=== PATIENT | male | born 1985 | race Caucasian/White ===

== ENCOUNTER 2025-02-10 18:42 | Emergency (ER) | payer SELFPAY ==
--- NOTE | 2025-02-10 18:56 | ED.EAR ---
HPI - Ear Problem General Chief complaint: Ear Stated complaint: EARACHE Time Seen by Provider: 02/10/25 18:57 Source: patient Mode of arrival: ambulatory Limitations: no limitations History of Present Illness HPI Narrative: 39-year-old male presents with left ear pain for 5 days. Dried an hgvu-hyf-xywwnfv earwax removal kit with no relief. Has been placing an teav-bgo-cwvhwfa 4% lidocaine drops to treat pain. Reports change in hearing. No other symptoms. Afebrile. All systems reviewed and negative except as noted above. PMFSH Comments At time of signature, agree with nursing past medical, surgical, social and family history. There is no relevant family history pertinent to the presenting complaint. Exam Narrative: GENERAL: This is a well-nourished, well-developed patient, in no apparent distress. HEAD: normocephalic, atraumatic. EYES: PERRL. Sclera clear/white. Vision is grossly intact. EARS: External ears normal, right ear canal normal. Left ear canal is tender with erythema and swelling. No drainage., left TM is erythematous and retracted. Right TM is normal. No perforation bilaterally.. Hearing grossly intact. NOSE: External nose normal NECK: Neck supple, non-tender without lymphadenopathy, masses or thyromegaly. CARDIOVASCULAR: Regular rate and rhythm without murmurs, gallops, or rubs. RESPIRATORY: Clear to auscultation. Breath sounds equal bilaterally. No wheezes, rales, or rhonchi. SKIN: warm, Dry, intact with no suspicious lesions or rash, good texture and turgor. NEURO: awake, alert, and oriented to person, place and time. There were no obvious focal neurologic abnormalities. EXTREMITIES: No joint tenderness, effusion, or edema noted. Course Course Level of Care: Express Care Visit Vital Signs Vital signs: Reviewed Medical Decision Making MDM Narrative Medical decision making narrative: Will treat left otitis media and left otitis externa with amoxicillin and Ciprodex ear drops. Patient agrees with plan of care. Patient is well-appearing, nontoxic. Patient is aware that pharmacy is closed and chooses to sheepskin pickler his antibiotic tomorrow morning. Discharge Plan Discharge Clinical Impression: Acute left otitis media, External otitis of left ear Patient Disposition: Home Condition: Stable Instructions: Antibiotic Form, How to Use Ear Drops (ED), Ear Infection (ED) Additional Instructions: Take antibiotic as prescribed until gone. Place antibiotic ear drops as prescribed. Read over discharge packet on how to place ear drops. Take Tylenol or ibuprofen every 6-8 hours as needed for pain. See your doctor symptoms are not improving. Patient Language: Malay Prescriptions: New amoxicillin 875 mg tablet 875 mg PO Q12H 10 Days Qty: 20 0RF ciprofloxacin-dexamethasone 0.3-0.1 % drops,suspension 4 drp LEFT EAR Q12H 7 Days Qty: 7.5 0RF Follow-up/Referrals: PHYSICIAN,GLOBAL COMPENSATION ANALYST [Primary Care Provider] - Time of Disposition: 19:03
[2025-02-10 18:57] VITALS: BP 122/83; PULSE 77; RESP 16; TEMP 36.6; O2SAT 98
== END 2025-02-10 19:06 | disposition home or self-care (01) ==
PROVIDERS: Emergency Provider Nurse Practitioner Family
DX: H66.92 Otitis media, unspecified, left ear (principal); H60.92 Unspecified otitis externa, left ear
CPT/HCPCS: 99203; G0463